=== PATIENT | female | born 1985 | race Two or more races ===

== ENCOUNTER 2019-12-18 05:21 | Emergency (ER) | payer OTHER ==
[~2019-12-18] VITALS: Ht 167.6 cm; Wt 66.6 kg
--- NOTE | 2019-12-18 05:37 | NUR ---
pt reports getting up to go to the restroom this am and tripped over dog gait and fell. Hit chin on floor, small laceration, also bumped left shoulder. Pt NAD. VSS, denies LOC or blood thinners. WCTM. Martha VIVAS at BS for eval and poc.
[2019-12-18 05:38] VITALS: BP 97/57
[2019-12-18] MEDS ORDERED: KETOROLAC 30 MG/1 ML ONE (05:52)
[2019-12-18] MEDS ORDERED: L.E.T SOLUTION TP ONE ×2 (05:52→06:00)
[2019-12-18] MEDS ORDERED: LIDOCAINE-MPF 2% ,5ML SQ ONE (06:00)
[2019-12-18] MEDS ORDERED: KETOROLAC 30 MG/1 ML IM ONE (06:00)
--- NOTE | 2019-12-18 06:01 | NUR ---
pt medicated per mar, rads completed, waiting for read, nad, wctm. no change in condition, pt updated on poc.
[2019-12-18] MEDS ORDERED: LIDOCAINE-MPF 2% ,5ML ONE (06:05)
[2019-12-18] MEDS ORDERED: NEOSPORIN OINT. PKT 1 PACKET ONE (06:37)
--- NOTE | 2019-12-18 06:41 | NUR ---
PatienT given discharge instructions and they have confirmed that they understand the instructions. Patient ambulatory with steady gait. NAD, DENIES ADDITIONAL QUESTIONS OR NEEDS AT THIS TIME. NO PERSONAL BELONGINGS LEFT IN ROOM AT TIME OF DC.
== END 2019-12-18 06:43 | disposition home or self-care (01) ==
LOC: ED 06:10
DX: S01.81XA Laceration without foreign body of other part of head, initial encounter (principal); W01.0XXA Fall on same level from slipping, tripping and stumbling without subsequent striking against object, initial encounter; Y93.89 Activity, other specified; Y92.098 Other place in other non-institutional residence as the place of occurrence of the external cause; Y99.8 Other external cause status
CPT/HCPCS: 12013; 70100; 99283; J1885